=== PATIENT | female | born 2000 | race Caucasian/White ===

== ENCOUNTER 2019-05-17 10:28 | Outpatient (RCR) | payer BC, MEDICAID, SELFPAY ==
[2019-05-11 12:04] VITALS: BP 139/88; PULSE 99
--- NOTE | 2019-05-11 13:55 | PC.NURSE ---
1206-Called Dr. Juan Luis Kwon with pt status. Pt states that she has a headache and is seeing spots. BPs given. September D/C home.
[2019-05-17 11:16] VITALS: BP 139/91
[2019-05-17 11:33] LABS: Basophils Percent Auto 0.3 % (0.2-1.2); Eosinophils Percent Auto 0.4 % (0-4.4); Hemoglobin 10.9 g/dL (12.0-15.0); Immature Granulocyte Absolute 0.03 K/mm3 (0.00-0.031); Immature Granulocyte Percent A 0.4 % (0-0.5); Lymphocytes Absolute Auto 2.15 K/mm3 (0.9-3.2); Lymphocytes Percent Auto 27.4 % (18.3-44.2); Mean Corpuscular HGB Conc 34.1 g/dl (32-36); Mean Corpuscular Hemoglobin 31.7 pg (26-34); Mean Platelet Volume 11.2 fl (7.4-10.4); Monocytes Absolute Auto 0.5 K/mm3 (0.1-0.6); Neutrophils Absolute Auto 5.2 K/mm3 (1.3-6.7); Neutrophils Percent Auto 65.5 % (45.5-73.1); Platelet Count Result 163 k/mm3 (150-375); Red Blood Count 3.44 M/mm3 (4.2-5.4); Red Cell Distribution Width 12.6 % (11.5-14.5); White Blood Count 7.9 K/mm3 (4.5-10.0)
[2019-05-17 11:46] LABS: Alanine Aminotransferase 17 U/L (4-35); Albumin Level 3.7 g/dL (3.5-5.1); Alkaline Phosphatase 120 U/L (38-126); Aspartate Amino Transferase 27 U/L (14-36); Bilirubin,Total 0.3 mg/dL (0.2-1.3); Blood Urea Nitrogen 8 mg/dL (7-17); Calcium 9.6 mg/dL (8.4-10.2); Carbon Dioxide 22 mmol/L (22-30); Chloride 102 mmol/L (98-107); Estimated Glomerular Filt Rate > 60; Glucose 93 mg/dL (65-105); Sodium 137 mmol/L (137-145); Uric Acid 5.1 mg/dL (2.5-7.5)
[2019-05-17 11:57] LABS: Creatinine Urine 124.1 mg/dL; Total Protein Urine Random 23 mg/dL
[2019-05-17 12:08] LABS: Add Urine Microscopic? YES; Appearance Urine Clear (Clear); Bacteria Urine 1+ /hpf; Bilirubin Urine Negative (Negative); Blood Urine Negative (Negative); Color Urine Yellow (Yellow); Glucose Urine UA Negative (Negative); Ketones Urine Negative (Negative); Leukocyte Esterase Ur Trace LEU/UL (NEGATIVE); Mucus Urine Rare /lpf; Nitrate Urine Negative (Negative); Protein Urine 1+ mg/dL (Negative); RBC Urine 0-2 /hpf (0-2); Specific Grav Ur 1.014 (1.001-1.035); Squamous Epithelial Cell Urine Many /hpf (Few); Urobilinogen Urine Negative mg/dL (<2.0)
--- NOTE | 2019-05-17 12:21 | PC.NURSE ---
Spoke with Dr. Juan Luis Kwon, labs reveiwed, BP's reveiwed. Orders to discharge to home.
--- NOTE | 2019-05-17 12:29 | PM.OBTRLD ---
OB - Triage/Final Diagnosis Visit Information Date of evaluation: 05/17/19 Reason for evaluation: other (gestational htn) Evaluation Laboratory results: Laboratory Tests 05/17/19 05/17/19 05/17/19 11:26 11:26 11:26 WBC 7.9 RBC 3.44 L Hgb 10.9 L Hct 32.0 L MCV 93.0 MCH 31.7 MCHC 34.1 RDW 12.6 Plt Count 163 MPV 11.2 H Immature Gran % (Auto) 0.4 Neut % (Auto) 65.5 Lymph % (Auto) 27.4 [place] % (Auto) 6.0 Eos % (Auto) 0.4 Baso % (Auto) 0.3 Lymph # (Auto) 2.15 [place] # (Auto) 0.5 Eos # (Auto) 0.0 Baso # (Auto) 0.0 Abs Immat Gran (auto) 0.03 Absolute Neuts (auto) 5.2 Absolute Nucleated RBC 0.0 Nucleated RBC % 0.0 Sodium Potassium Chloride Carbon Dioxide BUN Creatinine Estim Creat Clear Calc Estimated GFR Glucose Uric Acid Calcium Total Bilirubin AST ALT Alkaline Phosphatase Total Protein Albumin Urine Color Yellow Urine Appearance Clear Urine pH 7.0 Ur Specific [place] 1.014 Urine Protein 1+ H Urine Glucose (UA) Negative Urine Ketones Negative Ur Blood (Man) Negative Urine Nitrate Negative Urine Bilirubin Negative Urine Urobilinogen Negative Ur Leukocyte Esterase Trace H Urine RBC 0-2 Urine WBC 4-6 H Ur Squamous Epith Cells Many H Urine Bacteria 1+ H Urine Mucus Rare U Random Total Protein 23 Urine Creatinine 124.1 05/17/19 11:26 WBC RBC Hgb Hct MCV MCH MCHC RDW Plt Count MPV Immature Gran % (Auto) Neut % (Auto) Lymph % (Auto) [place] % (Auto) Eos % (Auto) Baso % (Auto) Lymph # (Auto) [place] # (Auto) Eos # (Auto) Baso # (Auto) Abs Immat Gran (auto) Absolute Neuts (auto) Absolute Nucleated RBC Nucleated RBC % Sodium 137 Potassium 4.0 Chloride 102 Carbon Dioxide 22 BUN 8 Creatinine 0.60 L Estim Creat Clear Calc Not Reportable Estimated GFR > 60 Glucose 93 Uric Acid 5.1 Calcium 9.6 Total Bilirubin 0.3 AST 27 ALT 17 Alkaline Phosphatase 120 Total Protein 7.0 Albumin 3.7 Urine Color Urine Appearance Urine pH Ur Specific [place] Urine Protein Urine Glucose (UA) Urine Ketones Ur Blood (Man) Urine Nitrate Urine Bilirubin Urine Urobilinogen Ur Leukocyte Esterase Urine RBC Urine WBC Ur Squamous Epith Cells Urine Bacteria Urine Mucus U Random Total Protein Urine Creatinine Vital signs: Vital Signs - 24 hr 05/17/19 11:16 Blood Pressure [Right Arm] 139/91 H
== END 2019-07-08 07:47 | disposition home or self-care (01) ==
LOC: ANHOBOP 10:28
PROVIDERS: Visit Provider Obstetrics & Gynecology
DX: O10.913 Unspecified pre-existing hypertension complicating pregnancy, third trimester (principal); Z3A.35 35 weeks gestation of pregnancy; Z3A.36 36 weeks gestation of pregnancy
CPT/HCPCS: 36415; 59025; 80053; 81001; 82570; 84156; 84550; 85025; 87086

== ENCOUNTER 2019-05-25 14:00 | Outpatient (CLI) | payer BC, MEDICAID, SELFPAY ==
[2019-05-25 14:40] VITALS: BP 133/88; PULSE 122; RESP 20; TEMP 38.3
== END 2019-05-25 15:00 | disposition home or self-care (01) ==
LOC: ANHOBOP 14:25 → ANHOBPP 14:27
PROVIDERS: PCP Family Medicine; Visit Provider Obstetrics & Gynecology
DX: M54.9 Dorsalgia, unspecified (principal)
CPT/HCPCS: 99199; 81050